=== PATIENT | female | born 1970 | race Caucasian/White ===

== ENCOUNTER → 2020-06-23 | Outpatient (CLI) | payer OTHER ==
--- NOTE | 2020-06-23 17:37 | NM ---
EXAMINATION TYPE: NM hepatobiliary w EF DATE OF EXAM: 06/23/2020 COMPARISON: NONE HISTORY: Acute cholecystitis TECHNIQUE: After the intravenous administration of 4.46 mCi Tc 99m Mebrofenin hepatobiliary scintigra phy is performed. Immediate images post injection. FINDINGS: There is satisfactory initial accumulation of tracer by the liver. The gallbladder is visualized wit hin 6 minutes. The small bowel activity is noted within 30 minutes after giving ensure. At one hour 8 ounces of oral ensure plus is given to mimic CCK and gallbladder ejection fraction is calculated a t 88 %, in the normal range. Therefore there is no scintigraphic evidence of cystic or common bile d uct obstruction, acute or chronic cholecystitis, or biliary dyskinesia. IMPRESSION: Exam is within normal limits. No acute cholecystitis.
== END | disposition home or self-care (01) ==
LOC: RADNMMAIN 13:04
PROVIDERS: ATTEND Surgery Plastic and Reconstructive Surgery
DX: K81.0 Acute cholecystitis (principal)
CPT/HCPCS: 78226; A9537

== ENCOUNTER 2020-06-29 08:12 | Day surgery (SDC) | payer OTHER ==
[2020-06-27 10:13] VITALS: BMI 28.4
[~2020-06-29 08:12] MED LIST: LACTATED RINGERS 1,000 ML IV SCH
[2020-06-29 08:32] VITALS: RESP 16; TEMP 98.4
--- NOTE | 2020-06-29 09:09 | P.GSHP ---
History of Present Illness H&P Date: 06/29/20 CHIEF COMPLAINT: GERD HISTORY OF PRESENT ILLNESS: The patient is a 49-year-old female who presents reports gastroesophageal reflux disease. Upper endoscopy was offered for further evaluation and management. PAST MEDICAL HISTORY: Please see list. PAST SURGICAL HISTORY: Please see list. MEDICATIONS: Please see list. ALLERGIES: Please see list. SOCIAL HISTORY: No illicit drug use FAMILY HISTORY: No reports of Crohn disease or ulcerative colitis. REVIEW OF ORGAN SYSTEMS: CONSTITUTIONAL: No reports of fevers or chills. GI: Denies any blood in stools or constipation. PHYSICAL EXAM: VITAL SIGNS: Stable GENERAL: Well-developed and pleasant in no acute distress. HEENT: No scleral icterus. Extraocular movements grossly intact. Moist buccal mucosa. NECK: Supple without lymphadenopathy. CHEST: Unlabored respirations. Equal bilateral excursions. CARDIOVASCULAR: Regular rate and rhythm. Distal 2+ pulses. ABDOMEN: Soft, nondistended. MUSCULOSKELETAL: No clubbing, cyanosis, or edema. ASSESSMENT: 1. Gastroesophageal reflux disease PLAN: 1. Recommend proceeding with an upper endoscopy Past Medical History Past Medical History: Asthma, Hyperlipidemia, Hypertension Additional Past Medical History / Comment(s): ABD PAIN AND GI UPSET History of Any Multi-Drug Resistant Organisms: None Reported Past Surgical History: Hysterectomy, Orthopedic Surgery Additional Past Surgical History / Comment(s): LT KNEE SX. COLONOSCOPY Past Anesthesia/Blood Transfusion Reactions: No Reported Reaction Smoking Status: Current every day smoker - Past Family History Father Family Medical History: Cancer Additional Family Medical History / Comment(s): COLON AND PROSTATE Medications and Allergies Home Medications Medication Instructions Recorded Confirmed Type Albuterol Sulfate [Ventolin HFA] 1 - 2 puff INHALATION Q6H PRN 06/27/20 06/29/20 History Atorvastatin [Lipitor] 40 mg PO DAILY 06/27/20 06/29/20 History Cyanocobalamin [Vitamin B-12 1,000 mcg IM QMONTHLY 06/27/20 06/29/20 History Injection] Ergocalciferol [Vitamin D2] 50,000 unit PO TH 06/27/20 06/29/20 History Fenofibrate 160 mg PO DAILY 06/27/20 06/29/20 History Fluticasone Propion/Salmeterol 1 inhalation PO BID 06/27/20 06/29/20 History [Fluticasone-Salmeterol 500-50] HYDROcodone/APAP 7.5-325MG [[place] 1 tab PO Q6HR PRN 06/27/20 06/29/20 History 7.5-325] Potassium Chloride ER [K-Dur 10] 20 meq PO DAILY 06/27/20 06/29/20 History amLODIPine [Norvasc] 10 mg PO DAILY 06/27/20 06/29/20 History hydroCHLOROthiazide 25 mg PO DAILY 06/27/20 06/29/20 History Allergies Allergy/AdvReac Type Severity Reaction Status Date / Time Iodinated Contrast Media Allergy Dyspnea Verified 06/29/20 08:32 Surgical - Exam Vital Signs Temp Pulse Resp BP Pulse Ox 98.4 F 75 16 105/61 97 06/29/20 08:27 06/29/20 08:27 06/29/20 08:27 06/29/20 08:27 06/29/20 08:27
[2020-06-29] MEDS ORDERED: PROPOFOL 10 MG/ML 20 ML VIAL IV ONE (10:00)
[2020-06-29] MEDS ORDERED: LIDOCAINE 1% INJ 10MG/ML (20 ML MDV) ONE (10:00)
--- NOTE | 2020-06-29 10:16 | P.PCN ---
Date of Procedure: 06/29/20 Description of Procedure: PREOPERATIVE DIAGNOSIS: Gastroesophageal reflux disease. POSTOPERATIVE DIAGNOSIS: Gastritis. Gastroesophageal reflux disease. Diaphragmatic hiatal hernia OPERATION: Esophagogastroduodenoscopy with biopsies along antrum. SURGEON: Dorothy Sam MD ANESTHESIA: MAC. INDICATIONS: The patient is a 49-year-old female who presents with a history of reflux disease. Benefits and risks of the procedure were described. Informed consent was obtained. DESCRIPTION: The patient was brought into the endoscopy suite and laid in the left lateral decubitus position. An Olympus gastroscope was passed along the posterior oropharynx down to the distal esophagus where the squamocolumnar junction was encountered at 40 cm from the incisors. The stomach was entered and no bile reflux was found. Additional findings are listed below. Biopsies with cold forceps were obtained of the antrum. The first through third portion of the duodenum was examined and unremarkable. Retroflexion of the scope confirmed Hill grade 3 lower esophageal valve. The squamocolumnar junction demonstrated LA grade B erosive esophagitis. The stomach was desufflated. The patient tolerated the procedure well. FINDINGS: Squamocolumnar junction 40 cm from the incisors. Diaphragmatic hiatus at 40 cm. Hill grade 3 lower esophageal valve. LA grade B erosive esophagitis. No active duodenitis. Chronic gastritis RECOMMENDATIONS: Upper endoscopy as needed. Plan - Discharge Summary Discharge Rx Participant: No New Discharge Prescriptions: New Omeprazole [PriLOSEC] 40 mg PO DAILY #14 cap Continue Albuterol Sulfate [Ventolin HFA] 1 - 2 puff INHALATION Q6H PRN PRN Reason: ASTHMA amLODIPine [Norvasc] 10 mg PO DAILY HYDROcodone/APAP 7.5-325MG [[place] 7.5-325] 1 tab PO Q6HR PRN PRN Reason: Pain Ergocalciferol [Vitamin D2 (DRISDOL)] 50,000 unit PO TH Cyanocobalamin [Vitamin B-12 Injection] 1,000 mcg IM QMONTHLY Potassium Chloride ER [K-Dur 10] 20 meq PO DAILY Fenofibrate 160 mg PO DAILY Atorvastatin [Lipitor] 40 mg PO DAILY hydroCHLOROthiazide 25 mg PO DAILY Fluticasone Propion/Salmeterol [Fluticasone-Salmeterol 500-50] 1 inhalation PO BID Discharge Medication List Albuterol Sulfate [Ventolin HFA] 1 - 2 puff INHALATION Q6H PRN 06/27/20 [History] Atorvastatin [Lipitor] 40 mg PO DAILY 06/27/20 [History] Cyanocobalamin [Vitamin B-12 Injection] 1,000 mcg IM QMONTHLY 06/27/20 [History] Ergocalciferol [Vitamin D2 (DRISDOL)] 50,000 unit PO TH 06/27/20 [History] Fenofibrate 160 mg PO DAILY 06/27/20 [History] Fluticasone Propion/Salmeterol [Fluticasone-Salmeterol 500-50] 1 inhalation PO BID 06/27/20 [History] HYDROcodone/APAP 7.5-325MG [[place] 7.5-325] 1 tab PO Q6HR PRN 06/27/20 [History] Potassium Chloride ER [K-Dur 10] 20 meq PO DAILY 06/27/20 [History] amLODIPine [Norvasc] 10 mg PO DAILY 06/27/20 [History] hydroCHLOROthiazide 25 mg PO DAILY 06/27/20 [History] Omeprazole [PriLOSEC] 40 mg PO DAILY #14 cap 06/29/20 [Rx] Follow up Appointment(s)/Referral(s): Dorothy Sam MD [STAFF PHYSICIAN] - 07/12/20 Patient Instructions/Handouts: Gastritis (DC), Diet for Stomach Ulcers and Gastritis (ED), Hiatal Hernia (DC), How to Stop Smoking (DC) Discharge Disposition: HOME SELF-CARE
[2020-06-29 10:32] VITALS: BP 120/60; PULSE 77
== END 2020-06-29 10:40 | disposition home or self-care (01) ==
LOC: ORWHC2ENDO 08:12
PROVIDERS: ATTEND Surgery Plastic and Reconstructive Surgery
DX: K29.50 Unspecified chronic gastritis without bleeding (principal); K21.00 Gastro-esophageal reflux disease with esophagitis, without bleeding; K22.10 Ulcer of esophagus without bleeding; K44.9 Diaphragmatic hernia without obstruction or gangrene; J45.909 Unspecified asthma, uncomplicated; E78.5 Hyperlipidemia, unspecified; I10 Essential (primary) hypertension; F17.210 Nicotine dependence, cigarettes, uncomplicated; Z91.048 Other nonmedicinal substance allergy status; Z90.710 Acquired absence of both cervix and uterus; Z98.890 Other specified postprocedural states; Z79.899 Other long term (current) drug therapy; Z79.51 Long term (current) use of inhaled steroids; Z97.2 Presence of dental prosthetic device (complete) (partial); Z91.041 Radiographic dye allergy status; Z80.0 Family history of malignant neoplasm of digestive organs; Z80.42 Family history of malignant neoplasm of prostate
CPT/HCPCS: 88305; 43239; J2001; J2704

== ENCOUNTER 2020-08-29 12:08 | Observation (INO) | payer OTHER ==
[2020-08-29] MEDS ORDERED: SODIUM CHLORIDE 0.9% 500 ML 500 ML IV STA (12:24)
--- NOTE | 2020-08-29 12:32 | ED ---
General Adult HPI - General Stated complaint: Poss UTI/Weakness Time Seen by Provider: 08/29/20 12:10 Source: patient, RN notes reviewed, old records reviewed - History of Present Illness Initial comments: This is a 49-year-old female presents emergency Department complaining that her knees hurt to the point where she can't stand. Patient states it started about an days ago and has gotten worse to the point where she spent most of those 5 days in her chair. Patient denies any fever chills per patient denies any injury. Patient states she went to another emergency department they did some ultrasounds x-rays and some lab work and then sent her home. Patient states her doctor saw her and did some lab work and urine and told to come to the emergency department. Patient states that he indicated she might of urinary tract infection. Patient denies any back pain. Patient denies any numbness or focal weakness. Patient denies any abdominal pain patient denies nausea vomiting diarrhea. Patient states her thighs and calves are not weak her knees hurt. - Related Data Home Medications Medication Instructions Recorded Confirmed Albuterol Sulfate [Ventolin HFA] 1 - 2 puff INHALATION RT-Q6H PRN 06/27/20 08/29/20 Atorvastatin [Lipitor] 40 mg PO DAILY 06/27/20 08/29/20 Cyanocobalamin [Vitamin B-12 1,000 mcg IM QMONTHLY 06/27/20 08/29/20 Injection] Ergocalciferol [Vitamin D2 50,000 unit PO TH 06/27/20 08/29/20 (DRISDOL)] Fenofibrate 160 mg PO DAILY 06/27/20 08/29/20 Fluticasone Propion/Salmeterol 1 puff INHALATION RT-BID 06/27/20 08/29/20 [Fluticasone-Salmeterol 500-50] Potassium Chloride ER [K-Dur 10] 20 meq PO DAILY 06/27/20 08/29/20 amLODIPine [Norvasc] 10 mg PO DAILY 06/27/20 08/29/20 hydroCHLOROthiazide 25 mg PO DAILY 06/27/20 08/29/20 HYDROcodone/APAP 10-325MG [[place] 1 tab PO Q6HR PRN 08/29/20 08/29/20 10-325] Previous Rx's Medication Instructions Recorded Omeprazole [PriLOSEC] 40 mg PO DAILY #14 cap 06/29/20 Allergies Allergy/AdvReac Type Severity Reaction Status Date / Time Iodinated Contrast Media Allergy Dyspnea Verified 08/29/20 13:17 Review of Systems ROS Statement: Those systems with pertinent positive or pertinent negative responses have been documented in the HPI. ROS Other: All systems not noted in ROS Statement are negative. General Exam - General Exam Comments Initial Comments: GENERAL: Patient is well-developed and well-nourished. Patient is nontoxic and well- hydrated and is in no acute distress. ENT: Neck is soft and supple. No significant lymphadenopathy is noted. Oropharynx is clear. Moist mucous membranes. Neck has full range of motion without eliciting any pain. EYES: The sclera were anicteric and conjunctiva were pink and moist. Extraocular movements were intact and pupils were equal round and reactive to light. Eyelids were unremarkable. PULMONARY: Unlabored respirations. Good breath sounds bilaterally. No audible rales rhonchi or wheezing was noted. CARDIOVASCULAR: There is a regular rate and rhythm without any murmurs gallops or rubs. ABDOMEN: Soft and nontender with normal bowel sounds. SKIN: Skin is clear with no lesions or rashes and otherwise unremarkable. NEUROLOGIC: Patient is alert and oriented x3. Cranial nerves II through XII are grossly intact. Motor and sensory are also intact. Normal speech, volume and content. Symmetrical smile. MUSCULOSKELETAL: Patient has normal strength of her thigh and calf but she is unable to fully flex the niece because of pain. LYMPHATICS: No significant lymphadenopathy is noted PSYCHIATRIC: Normal psychiatric evaluation. Course Vital Signs 08/29/20 08/29/20 12:28 14:16 Temperature 98.7 F Pulse Rate 83 88 Respiratory 18 18 Rate Blood Pressure 98/75 119/67 O2 Sat by Pulse 97 98 Oximetry Medical Decision Making - Medical Decision Making EKG shows sinus rhythm with occasional PAC at 74 bpm MO interval 260 QRS is 94 Q-T intervals 432 QTC is 479. Patient's EKG shows no ST segment elevation or depression. I begin to reevaluate the patient myself and a nurse tried to stand her up and she was able to stand up straight if we gave her some assistance however her pain in her knees bilaterally was so significant that she couldn't stand along needed to sit back down almost immediately. Patient states it does not seem to her that it is weakness of her legs is pain in her knees. Patient states prior to 5 days ago she had no symptoms and no problems and bleeding or getting up. - Lab Data Result diagrams: 08/29/20 12:54 08/29/20 12:54 Lab Results 08/29/20 08/29/20 08/29/20 Range/Units 12:54 12:54 12:54 WBC 12.2 H (3.8-10.6) k/uL RBC 4.36 (3.80-5.40) m/uL Hgb 13.1 (11.4-16.0) gm/dL Hct 38.1 (34.0-46.0) % MCV 87.2 (80.0-100.0) fL MCH 30.0 (25.0-35.0) pg MCHC 34.3 (31.0-37.0) g/dL RDW 13.7 (11.5-15.5) % Plt Count 685 H (150-450) k/uL MPV 6.8 Neutrophils % 66 % Lymphocytes % 19 % Monocytes % 7 % Eosinophils % 4 % Basophils % 2 % Neutrophils # 8.1 H (1.3-7.7) k/uL Lymphocytes # 2.3 (1.0-4.8) k/uL Monocytes # 0.9 (0-1.0) k/uL Eosinophils # 0.5 (0-0.7) k/uL Basophils # 0.3 H (0-0.2) k/uL ESR Cancelled PT 10.1 (9.0-12.0) sec INR 0.9 (<1.2) APTT 24.5 (22.0-30.0) sec Sodium 136 L (137-145) mmol/L Potassium 4.6 (3.5-5.1) mmol/L Chloride 106 (98-107) mmol/L Carbon Dioxide 22 (22-30) mmol/L Anion Gap 8 mmol/L BUN 18 H (7-17) mg/dL Creatinine 0.55 (0.52-1.04) mg/dL Est GFR (CKD-EPI)AfAm >90 (>60 ml/min/1.73 sqM) Est GFR (CKD-EPI)NonAf >90 (>60 ml/min/1.73 sqM) Glucose 117 H (74-99) mg/dL Plasma Lactic Acid [place] (0.7-2.0) mmol/L Calcium 9.6 (8.4-10.2) mg/dL Magnesium 2.2 (1.6-2.3) mg/dL Total Bilirubin 0.9 (0.2-1.3) mg/dL AST 32 (14-36) U/L ALT 20 (4-34) U/L Alkaline Phosphatase 119 (38-126) U/L Troponin I (0.000-0.034) ng/mL C-Reactive Protein 186.3 H (<10.0) mg/L Total Protein 8.0 (6.3-8.2) g/dL Albumin 4.1 (3.5-5.0) g/dL Urine Color Urine Appearance (Clear) Urine pH (5.0-8.0) Ur Specific Essie (1.001-1.035) Urine Protein (Negative) Urine Glucose (UA) (Negative) Urine Ketones (Negative) Urine Blood (Negative) Urine Nitrite (Negative) Urine Bilirubin (Negative) Urine Urobilinogen (<2.0) mg/dL Ur Leukocyte Esterase (Negative) Urine RBC (0-5) /hpf Urine WBC (0-5) /hpf Ur Squamous Epith Cells (0-4) /hpf Urine Bacteria (None) /hpf Urine Mucus (None) /hpf 08/29/20 08/29/20 08/29/20 Range/Units 12:54 12:54 13:15 WBC (3.8-10.6) k/uL RBC (3.80-5.40) m/uL Hgb (11.4-16.0) gm/dL Hct (34.0-46.0) % MCV (80.0-100.0) fL MCH (25.0-35.0) pg MCHC (31.0-37.0) g/dL RDW (11.5-15.5) % Plt Count (150-450) k/uL MPV Neutrophils % % Lymphocytes % % Monocytes % % Eosinophils % % Basophils % % Neutrophils # (1.3-7.7) k/uL Lymphocytes # (1.0-4.8) k/uL Monocytes # (0-1.0) k/uL Eosinophils # (0-0.7) k/uL Basophils # (0-0.2) k/uL ESR PT (9.0-12.0) sec INR (<1.2) APTT (22.0-30.0) sec Sodium (137-145) mmol/L Potassium (3.5-5.1) mmol/L Chloride (98-107) mmol/L Carbon Dioxide (22-30) mmol/L Anion Gap mmol/L BUN (7-17) mg/dL Creatinine (0.52-1.04) mg/dL Est GFR (CKD-EPI)AfAm (>60 ml/min/1.73 sqM) Est GFR (CKD-EPI)NonAf (>60 ml/min/1.73 sqM) Glucose (74-99) mg/dL Plasma Lactic Acid [place] 0.9 (0.7-2.0) mmol/L Calcium (8.4-10.2) mg/dL Magnesium (1.6-2.3) mg/dL Total Bilirubin (0.2-1.3) mg/dL AST (14-36) U/L ALT (4-34) U/L Alkaline Phosphatase (38-126) U/L Troponin I <0.012 (0.000-0.034) ng/mL C-Reactive Protein (<10.0) mg/L Total Protein (6.3-8.2) g/dL Albumin (3.5-5.0) g/dL Urine Color Yellow Urine Appearance Turbid H (Clear) Urine pH 6.0 (5.0-8.0) Ur Specific Essie 1.032 (1.001-1.035) Urine Protein 1+ H (Negative) Urine Glucose (UA) Negative (Negative) Urine Ketones Negative (Negative) Urine Blood Trace H (Negative) Urine Nitrite Negative (Negative) Urine Bilirubin Negative (Negative) Urine Urobilinogen 3.0 (<2.0) mg/dL Ur Leukocyte Esterase Large H (Negative) Urine RBC 31 H (0-5) /hpf Urine WBC 34 H (0-5) /hpf Ur Squamous Epith Cells 71 H (0-4) /hpf Urine Bacteria Occasional H (None) /hpf Urine Mucus Few H (None) /hpf Disposition Clinical Impression: Unable to ambulate, Bilateral knee pain Disposition: ADMITTED IP TO THIS HOSP Referrals: Jose F Sierra MD [Primary Care Provider] - 1-2 days Time of Disposition: 14:17
--- NOTE | 2020-08-29 12:44 | XR ---
EXAMINATION TYPE: XR chest 2V DATE OF EXAM: 08/29/2020 COMPARISON: None HISTORY: 49-year-old female with weakness TECHNIQUE: AP and lateral views FINDINGS: Heart borderline in size. Mild hyperinflation. Some patchy posterior basilar opacity on the lateral v iew. No pleural effusion. IMPRESSION: 1. Correlate for underlying COPD. 2. Some patchy posterior basilar opacity on the lateral view could represent atelectasis or early inf iltrate.
[2020-08-29 13:08] LABS: Basophils # (A) 0.3 k/uL (0-0.2); Basophils % (A) 2 %; Eosinophils # (A) 0.5 k/uL (0-0.7); Eosinophils % (A) 4 %; HCT 38.1 % (34.0-46.0); HGB 13.1 gm/dL (11.4-16.0); Lymphocytes # (A) 2.3 k/uL (1.0-4.8); Lymphocytes % (A) 19 %; MCHC 34.3 g/dL (31.0-37.0); MCV 87.2 fL (80.0-100.0); Mean Platelet Volume 6.8; Monocytes # (A) 0.9 k/uL (0-1.0); Monocytes % (A) 7 %; Neutrophils # (A) 8.1 k/uL (1.3-7.7); Neutrophils % (A) 66 %; Platelet Count 685 k/uL (150-450); RBC 4.36 m/uL (3.80-5.40); RDW 13.7 % (11.5-15.5); WBC 12.2 k/uL (3.8-10.6)
[2020-08-29 13:19] LABS: ALT 20 U/L (4-34); African American GFR (CKD) >90 (>60 ml/min/1.73 sqM); Anion Gap 8 mmol/L; Blood Urea Nitrogen 18 mg/dL (7-17); Calcium 9.6 mg/dL (8.4-10.2); Carbon Dioxide 22 mmol/L (22-30); Chloride 106 mmol/L (98-107); Glucose 117 mg/dL (74-99); Non-African American GFR(CKD) >90 (>60 ml/min/1.73 sqM); Sodium 136 mmol/L (137-145); Total Bilirubin 0.9 mg/dL (0.2-1.3)
[2020-08-29 13:33] LABS: AST 32 U/L (14-36); Albumin 4.1 g/dL (3.5-5.0); Alkaline Phosphatase 119 U/L (38-126); Magnesium 2.2 mg/dL (1.6-2.3); Potassium 4.6 mmol/L (3.5-5.1)
[2020-08-29 13:34] LABS: C Reactive Protein 186.3 mg/L (<10.0)
[2020-08-29 13:43] LABS: INR 0.9 (<1.2); Partial Thromboplastin Time 24.5 sec (22.0-30.0); Prothrombin Time 10.1 sec (9.0-12.0)
[2020-08-29 13:46] LABS: Appearance,Urine Turbid (Clear); Bacteria,Urine Occasional /hpf; Bilirubin,Urine Negative (Negative); Blood,Urine Trace (Negative); Color,Urine Yellow; Glucose,Urine (UA) Negative (Negative); Ketones,Urine Negative (Negative); Leukocyte Esterase,Urine Large (Negative); Mucus,Urine Few /hpf; Nitrite,Urine Negative (Negative); Protein,Urine 1+ (Negative); RBC,Urine 31 /hpf (0-5); Specific Gravity,Urine 1.032 (1.001-1.035); Squamous Epithelial Cell,Urine 71 /hpf (0-4); WBC,Urine 34 /hpf (0-5)
[2020-08-29] MEDS ORDERED: KETOROLAC 15 MG/ML 1 ML VIAL IVP STA (14:30)
[2020-08-29] MEDS ORDERED: ALBUTEROL NEBULIZED 2.5 MG/3 ML INHALATION PRN (21:13)
[2020-08-29] MEDS: KETOROLAC 15 MG/ML 1 ML VIAL IVP SCH (22:54)
[2020-08-29] MEDS: HYDROcodone/APAP 10-325MG 1 EACH TAB PO PRN (22:58)
[2020-08-30] MEDS: KETOROLAC 15 MG/ML 1 ML VIAL IVP SCH ×5 (01:02→23:38)
[2020-08-30 07:41] VITALS: RESP 16
[2020-08-30] MEDS: PANTOPRAZOLE 40 MG TABLET PO SCH (08:39)
[2020-08-30] MEDS: ATORVASTATIN 40 MG TAB PO SCH (08:39)
[2020-08-30] MEDS: FENOFIBRATE 160 MG TAB PO SCH (08:39)
[2020-08-30] MEDS: hydroCHLOROthiazide 25 MG TAB PO SCH (08:39)
[2020-08-30] MEDS: POTASSIUM CHLORIDE ER 10 MEQ TAB.ER.PRT PO SCH (08:39)
[2020-08-30] MEDS: amLODIPine 10 MG TAB PO SCH (08:39)
[2020-08-30] MEDS: HYDROcodone/APAP 10-325MG 1 EACH TAB PO PRN ×2 (08:40→13:39)
[2020-08-30] MEDS: SYMBICORT 160-4.5 MCG INHALER INHALATION SCH ×2 (08:59→21:00)
[2020-08-30 12:45] VITALS: BMI 28.8
[2020-08-30] MEDS: ENOXAPARIN 40 MG/0.4 ML SYRINGE SQ SCH (13:34)
[2020-08-30] MEDS: NICOTINE 21MG/24HR PATCH TRANSDERM SCH (13:34)
[2020-08-30] MEDS: methylPREDNISolone SOD SUCCI 40 MG/ML 1 ML VIAL IV SCH ×2 (13:34→21:32)
[2020-08-30] MEDS: DICLOFENAC SODIUM GEL 100 GM TUBE TOPICAL SCH ×3 (16:27→21:33)
--- NOTE | 2020-08-30 20:28 | P.HPIM ---
History of Present Illness H&P Date: 08/30/20 Chief Complaint: Bilateral knee pain History of presenting complaint: This is a 49-year-old patient of Dr. Eduard Sierra from [facility]. Patient 7 days ago started noticing that both the knees was started to hurting and progressively getting worse. Slight swelling. Denied any fever and chills. No diarrhea. No myalgia. Patient able to flex her knees but unable to stand on them. No other joints involved. Patient does drink a fifth a walker daily up to 3 months ago.. Also smokes a pack a day. Patient also has a leaky valve lower end of esophagus and supposed to have surgery by Dr. Ambriz coming up. Review of systems: GEN.: None EYES: None HEENT: None NECK: None RESPIRATORY: None CARDIOVASCULAR: None GASTROINTESTINAL: None GENITOURINARY: None MUSCULOSKELETAL: As above LYMPHATICS: None HEMATOLOGICAL: None PSYCHIATRY: None NEUROLOGICAL: None Past medical history to include: Hypertension, hyperlipidemia, restless leg syndrome, GERD, COPD Social history: . Smokes a pack a day. Was drinking a fifth of vodka a day up to 3 months ago. Family history: Reviewed, noncontributory to presentation Physical examination: VITAL SIGNS: 98.7, 83, 18, 119/67, 98% room air GENERAL: 28.8, sitting up in bed, not in distress. EYES: Pupils equal. Conjunctiva normal. HEENT: External appearance of nose and ears normal, oral cavity grossly normal. NECK: JVD not raised; masses not palpable. HEART: First and second heart sounds are normal; no edema. LUNGS: Respiratory rate normal; clear to auscultation. ABDOMEN: Soft, nontender, liver spleen not palpable, no masses palpable MUSCULAR skeletal: Patient is able to flex both the knees. Minimal tenderness.. PSYCH: Alert and oriented x3; mood and affect normal. NEUROLOGICAL: Cranial nerves grossly intact; no facial asymmetry, power and sensation grossly intact. LYMPHATICS: No lymph nodes palpable in the axilla and neck INVESTIGATIONS, reviewed in the clinical context: White count 12.2 hemoglobin 13.1 platelets 685 ESR 106 potassium 4.6 creatinine 0.55 CRP 186 UA-contaminated sample EKG tracing personally reviewed by me-normal sinus rhythm with a PVC Chest x-ray film personally reviewed by me shows some hyperinflation, possible left basal small infiltrate Assessment: -This is a patient presents with a 1 week history of both the knees having pain unable to stand of the same. That is flexion of the knees but patient not able to weight-bear. Suspect this to be possible viral arthritis. Patient does not have any obvious fever and chills. -COPD in a current smoker -Chronic nicotine dependence cigarette smoker -Hyperlipidemia -Essential hypertension -Restless leg syndrome -Alcohol use disorder Plan: Start the patient on IV Solu-Medrol. Home medications resumed. We'll give a nicotine patch. CIWA scale. Also give a dose of Valium for DVT prophylaxis. Care was discussed with the patient question also. Dr. Mcarthur from rheumatology was consulted. Lovenox for DVT prophylaxis. Past Medical History Past Medical History: Hyperlipidemia, Hypertension Additional Past Medical History / Comment(s): restless leg History of Any Multi-Drug Resistant Organisms: None Reported Past Surgical History: Orthopedic Surgery Additional Past Surgical History / Comment(s): left knee scope Past Psychological History: No Psychological Hx Reported Smoking Status: Current every day smoker Past Alcohol Use History: None Reported Past Drug Use History: Marijuana Medications and Allergies Home Medications Medication Instructions Recorded Confirmed Type Albuterol Sulfate [Ventolin HFA] 1 - 2 puff INHALATION RT-Q6H PRN 06/27/20 08/29/20 History Atorvastatin [Lipitor] 40 mg PO DAILY 06/27/20 08/29/20 History Cyanocobalamin [Vitamin B-12 1,000 mcg IM QMONTHLY 06/27/20 08/29/20 History Injection] Ergocalciferol [Vitamin D2 50,000 unit PO TH 06/27/20 08/29/20 History (DRISDOL)] Fenofibrate 160 mg PO DAILY 06/27/20 08/29/20 History Fluticasone Propion/Salmeterol 1 puff INHALATION RT-BID 06/27/20 08/29/20 History [Fluticasone-Salmeterol 500-50] Potassium Chloride ER [K-Dur 10] 20 meq PO DAILY 06/27/20 08/29/20 History amLODIPine [Norvasc] 10 mg PO DAILY 06/27/20 08/29/20 History hydroCHLOROthiazide 25 mg PO DAILY 06/27/20 08/29/20 History Omeprazole [PriLOSEC] 40 mg PO DAILY #14 cap 06/29/20 08/29/20 Rx HYDROcodone/APAP 10-325MG [[place] 1 tab PO Q6HR PRN 08/29/20 08/29/20 History 10-325] Allergies Allergy/AdvReac Type Severity Reaction Status Date / Time Iodinated Contrast Media Allergy Dyspnea Verified 08/29/20 13:17 Physical Exam Vitals: Vital Signs Temp Pulse Pulse Resp BP BP Pulse Ox 08/30/20 09:08 58 L 08/30/20 08:59 58 L 08/30/20 07:40 97.9 F 57 L 16 119/66 90 L 08/30/20 02:07 99.1 F 63 109/63 92 L 08/29/20 19:41 99.1 F 73 135/65 96 08/29/20 18:22 98.7 F 70 18 99/62 97 08/29/20 18:19 70 18 99/62 97 08/29/20 17:00 87 18 167/100 97 08/29/20 14:16 88 18 119/67 98 08/29/20 12:28 98.7 F 83 18 98/75 97 Intake and Output 08/29/20 08/30/20 08/30/20 22:59 06:59 14:59 Other: Voiding Method Toilet Bedside Commode # Voids 1 # Bowel Movements 1 Weight 91.172 kg Results CBC & Chem 7: 08/29/20 12:54 08/29/20 12:54 Labs: Abnormal Lab Results - Last 24 Hours (Table) 08/29/20 08/29/20 08/29/20 Range/Units 12:54 12:54 13:15 WBC 12.2 H (3.8-10.6) k/uL Plt Count 685 H (150-450) k/uL Neutrophils # 8.1 H (1.3-7.7) k/uL Basophils # 0.3 H (0-0.2) k/uL ESR (0-20) mm/hr Sodium 136 L (137-145) mmol/L BUN 18 H (7-17) mg/dL Glucose 117 H (74-99) mg/dL C-Reactive Protein 186.3 H (<10.0) mg/L Urine Appearance Turbid H (Clear) Urine Protein 1+ H (Negative) Urine Blood Trace H (Negative) Ur Leukocyte Esterase Large H (Negative) Urine RBC 31 H (0-5) /hpf Urine WBC 34 H (0-5) /hpf Ur Squamous Epith Cells 71 H (0-4) /hpf Urine Bacteria Occasional H (None) /hpf Urine Mucus Few H (None) /hpf 08/29/20 Range/Units 22:27 WBC (3.8-10.6) k/uL Plt Count (150-450) k/uL Neutrophils # (1.3-7.7) k/uL Basophils # (0-0.2) k/uL ESR 106 H (0-20) mm/hr Sodium (137-145) mmol/L BUN (7-17) mg/dL Glucose (74-99) mg/dL C-Reactive Protein (<10.0) mg/L Urine Appearance (Clear) Urine Protein (Negative) Urine Blood (Negative) Ur Leukocyte Esterase (Negative) Urine RBC (0-5) /hpf Urine WBC (0-5) /hpf Ur Squamous Epith Cells (0-4) /hpf Urine Bacteria (None) /hpf Urine Mucus (None) /hpf Microbiology - Last 24 Hours (Table) 08/29/20 13:15 Urine Culture - Preliminary Urine,Voided
[2020-08-30] MEDS: diazePAM 2 MG TAB PO SCH (21:32)
[2020-08-31] MEDS: methylPREDNISolone SOD SUCCI 40 MG/ML 1 ML VIAL IV SCH ×2 (05:24→14:15)
[2020-08-31] MEDS: KETOROLAC 15 MG/ML 1 ML VIAL IVP SCH ×2 (05:24→14:15)
[2020-08-31] MEDS: SYMBICORT 160-4.5 MCG INHALER INHALATION SCH (07:21)
[2020-08-31 07:42] VITALS: TEMP 97.9
[2020-08-31] MEDS: ENOXAPARIN 40 MG/0.4 ML SYRINGE SQ SCH (09:15)
[2020-08-31] MEDS: PANTOPRAZOLE 40 MG TABLET PO SCH (09:15)
[2020-08-31] MEDS: FENOFIBRATE 160 MG TAB PO SCH (09:15)
[2020-08-31] MEDS: ATORVASTATIN 40 MG TAB PO SCH (09:15)
[2020-08-31] MEDS: amLODIPine 10 MG TAB PO SCH (09:15)
[2020-08-31] MEDS: hydroCHLOROthiazide 25 MG TAB PO SCH (09:15)
[2020-08-31] MEDS: NICOTINE 21MG/24HR PATCH TRANSDERM SCH (09:15)
[2020-08-31] MEDS: POTASSIUM CHLORIDE ER 10 MEQ TAB.ER.PRT PO SCH (09:15)
[2020-08-31] MEDS: HYDROcodone/APAP 10-325MG 1 EACH TAB PO PRN (09:16)
[2020-08-31] MEDS: DICLOFENAC SODIUM GEL 100 GM TUBE TOPICAL SCH ×2 (09:16→14:15)
[2020-08-31] MEDS: diazePAM 2 MG TAB PO SCH (09:16)
[2020-08-31 14:56] VITALS: BP 135/79; PULSE 68
--- NOTE | 2020-08-31 16:44 | P.CONS ---
History of Present Illness - Reason for Consult Consult date: 08/30/20 Requesting physician: Taz García - Chief Complaint Bilateral knee pain - History of Present Illness Acute bilateral knee pain and cannot stand up Review of Systems Constitutional: Reports as per HPI, Reports fatigue, Reports weakness Past Medical History Past Medical History: Hyperlipidemia, Hypertension Additional Past Medical History / Comment(s): restless leg History of Any Multi-Drug Resistant Organisms: None Reported Past Surgical History: Orthopedic Surgery Additional Past Surgical History / Comment(s): left knee scope Past Psychological History: No Psychological Hx Reported Smoking Status: Current every day smoker Past Alcohol Use History: None Reported Past Drug Use History: Marijuana Medications and Allergies Home Medications Medication Instructions Recorded Confirmed Type Albuterol Sulfate [Ventolin HFA] 1 - 2 puff INHALATION RT-Q6H PRN 06/27/20 08/29/20 History Atorvastatin [Lipitor] 40 mg PO DAILY 06/27/20 08/29/20 History Cyanocobalamin [Vitamin B-12 1,000 mcg IM QMONTHLY 06/27/20 08/29/20 History Injection] Ergocalciferol [Vitamin D2 50,000 unit PO TH 06/27/20 08/29/20 History (DRISDOL)] Fenofibrate 160 mg PO DAILY 06/27/20 08/29/20 History Fluticasone Propion/Salmeterol 1 puff INHALATION RT-BID 06/27/20 08/29/20 History [Fluticasone-Salmeterol 500-50] Potassium Chloride ER [K-Dur 10] 20 meq PO DAILY 06/27/20 08/29/20 History amLODIPine [Norvasc] 10 mg PO DAILY 06/27/20 08/29/20 History hydroCHLOROthiazide 25 mg PO DAILY 06/27/20 08/29/20 History Omeprazole [PriLOSEC] 40 mg PO DAILY #14 cap 06/29/20 08/29/20 Rx HYDROcodone/APAP 10-325MG [[place] 1 tab PO Q6HR PRN 08/29/20 08/29/20 History 10-325] Diclofenac Sodium Gel [Voltaren 4 gm TOPICAL QID tube 08/31/20 Rx Gel] Nicotine 21Mg/24Hr Patch [Habitrol] 1 patch TRANSDERM DAILY #14 patch 08/31/20 Rx predniSONE 0 mg PO DIRECTED #21 tab 08/31/20 Rx Allergies Allergy/AdvReac Type Severity Reaction Status Date / Time Iodinated Contrast Media Allergy Dyspnea Verified 08/29/20 13:17 Physical Exam Vitals: Vital Signs Temp Pulse Resp BP Pulse Ox 08/31/20 14:00 97.9 F 68 16 135/79 97 08/31/20 07:41 97.9 F 66 16 139/92 96 08/31/20 02:39 98.2 F 57 L 117/58 93 L Intake and Output 08/31/20 08/31/20 08/31/20 06:59 14:59 22:59 Other: Voiding Method Toilet - Constitutional General appearance: no acute distress - EENT Eyes: EOMI ENT: hearing grossly normal - Neck Neck: no lymphadenopathy, normal ROM - Respiratory Respiratory: bilateral: CTA - Cardiovascular Rhythm: regular Heart sounds: normal: S1, S2 - Gastrointestinal General gastrointestinal: soft - Neurologic Neurologic: CNII-XII intact - Musculoskeletal Patient is unable to Standupwithout support because of pain in the knees, No swelling in the knees ,the rest of the Musculoskeletal exam was normal, scar on the left knee from previous scope Results CBC & Chem 7: 08/29/20 12:54 08/29/20 12:54 Labs: Microbiology - Last 24 Hours (Table) 08/29/20 13:15 Urine Culture - Final Urine,Voided Assessment and Plan (1) Bilateral knee pain Current Visit: Yes Status: Acute Code(s): M25.561 - PAIN IN RIGHT KNEE; M25.562 - PAIN IN LEFT KNEE SNOMED Code(s): 05641738 (2) Elevated sedimentation rate Current Visit: Yes Status: Acute Code(s): R70.0 - ELEVATED ERYTHROCYTE SEDIMENTATION RATE SNOMED Code(s): 978231081 Plan: This is a 49-year-old female admitted to [facility] and was seen on the floor. Rheumatology was consulted because of acute knee pain that started last week. The pain was so bad that she was unable to put any weight on her knee and standup and per the patient she did go to review [facility] and had ultrasound and x-rays and was told that everything was normal. It looks that her primary care physician found some abnormal lab work and told to come to the emergency room. On exam the patient has a fairly normal exam has no evidence of synovitis. The knees do not have any effusion. She has a scar in the left knee from her previous arthroscopic surgery. All other exam normal. The patient apparently is being treated as pneumonia based on the chest x-ray the patient denies any significant cough or fever and apparently has not been tested for Covid. I see no ophelia evidence of synovitis and she would need to be checked for her acute knee pain through orthopedic or neurology for other causes as it does not seem to inflammatory arthritis. Her sedimentation rate was in the 100s CRP was also 100 suggesting significant acute inflammation and since she did seem to have an infiltrate in the lungs she may have an infection that may be causing her acute joint pain. She is already on prednisone that'll hopefully help some of his symptoms. I will hold off an autoimmune workup at this time and if her symptoms persist she will see me as an outpatient.
[2020-09-01] MEDS ORDERED: ERGOCALCIFEROL 50,000 UNIT CAP PO SCH (09:00)
--- NOTE | 2020-09-01 17:26 | P.DS ---
Providers Date of admission: 08/29/20 14:18 Expected date of discharge: 08/31/20 Attending physician: Joshua Irving Consults: 08/29/20 14:31 Consult Physician Urgent Consulting Provider: Pati Mcarthur Consult Reason/Comments: Bilateral knee pain, inability to ambulate Do you want consulting provider notified?: Yes Primary care physician: Jose F Sierra [facility] Course: Chief Complaint: Bilateral knee pain History of presenting complaint: This is a 49-year-old patient of Dr. Eduard Sierra from [facility]. Patient 7 days ago started noticing that both the knees was started to hurting and progressively getting worse. Slight swelling. Denied any fever and chills. No diarrhea. No myalgia. Patient able to flex her knees but unable to stand on them. No other joints involved. Patient does drink a fifth a walker daily up to 3 months ago.. Also smokes a pack a day. Patient also has a leaky valve lower end of esophagus and supposed to have surgery by Dr. Ambriz coming up. Patient was suspected to have acute viral osteoarthritis affecting her knees. Based and not given a burst of steroids. Patient has a remarkable response. Today-feeling much better. Able to walk without support. No fever no chills. Care was discussed with the patient. We'll be discharging a tapering dose of steroids. Consultation: Dr. Mcarthur from rheumatology Physical examination: VITAL SIGNS: 97.9, 68, 16, 135 with 79, 97% room air GENERAL: Sitting up, comfortable EYES: Pupils equal. Conjunctiva normal. HEENT: External appearance of nose and ears normal, oral cavity grossly normal. NECK: JVD not raised; masses not palpable. HEART: First and second heart sounds are normal; no edema. LUNGS: Respiratory rate normal; clear to auscultation. ABDOMEN: Soft, nontender, liver spleen not palpable, no masses palpable MUSCULAR skeletal: Patient is able to flex both the knees. Minimal tenderness.. PSYCH: Alert and oriented x3; mood and affect normal. Neurological: Patient's witnessed to walk without support INVESTIGATIONS, reviewed in the clinical context: White count 12.2 hemoglobin 13.1 platelets 685 ESR 106 potassium 4.6 creatinine 0.55 CRP 186 UA-contaminated sample EKG tracing personally reviewed by me-normal sinus rhythm with a PVC Chest x-ray film personally reviewed by me shows some hyperinflation, possible left basal small infiltrate Assessment: -Possible Acute viral polyarthritis affecting both the knees. -COPD in a current smoker -Chronic nicotine dependence cigarette smoker -Hyperlipidemia -Essential hypertension -Restless leg syndrome -Alcohol use disorder Disposition: Home Patient Condition at Discharge: Stable Plan - Discharge Summary Discharge Rx Participant: No New Discharge Prescriptions: New Nicotine 21Mg/24Hr Patch [Habitrol] 1 patch TRANSDERM DAILY #14 patch predniSONE 0 mg PO DIRECTED #21 tab Diclofenac Sodium Gel [Voltaren Gel] 4 gm TOPICAL QID tube Continue Albuterol Sulfate [Ventolin HFA] 1 - 2 puff INHALATION RT-Q6H PRN PRN Reason: ASTHMA amLODIPine [Norvasc] 10 mg PO DAILY Ergocalciferol [Vitamin D2 (DRISDOL)] 50,000 unit PO TH Cyanocobalamin [Vitamin B-12 Injection] 1,000 mcg IM QMONTHLY Potassium Chloride ER [K-Dur 10] 20 meq PO DAILY Fenofibrate 160 mg PO DAILY Atorvastatin [Lipitor] 40 mg PO DAILY hydroCHLOROthiazide 25 mg PO DAILY Fluticasone Propion/Salmeterol [Fluticasone-Salmeterol 500-50] 1 puff INHALATION RT-BID Omeprazole [PriLOSEC] 40 mg PO DAILY #14 cap HYDROcodone/APAP 10-325MG [[place] 10-325] 1 tab PO Q6HR PRN PRN Reason: Pain Discharge Medication List Albuterol Sulfate [Ventolin HFA] 1 - 2 puff INHALATION RT-Q6H PRN 06/27/20 [History] Atorvastatin [Lipitor] 40 mg PO DAILY 06/27/20 [History] Cyanocobalamin [Vitamin B-12 Injection] 1,000 mcg IM QMONTHLY 06/27/20 [History] Ergocalciferol [Vitamin D2 (DRISDOL)] 50,000 unit PO TH 06/27/20 [History] Fenofibrate 160 mg PO DAILY 06/27/20 [History] Fluticasone Propion/Salmeterol [Fluticasone-Salmeterol 500-50] 1 puff INHALATION RT-BID 06/27/20 [History] Potassium Chloride ER [K-Dur 10] 20 meq PO DAILY 06/27/20 [History] amLODIPine [Norvasc] 10 mg PO DAILY 06/27/20 [History] hydroCHLOROthiazide 25 mg PO DAILY 06/27/20 [History] Omeprazole [PriLOSEC] 40 mg PO DAILY #14 cap 06/29/20 [Rx] HYDROcodone/APAP 10-325MG [[place] 10-325] 1 tab PO Q6HR PRN 08/29/20 [History] Diclofenac Sodium Gel [Voltaren Gel] 4 gm TOPICAL QID tube 08/31/20 [Rx] Nicotine 21Mg/24Hr Patch [Habitrol] 1 patch TRANSDERM DAILY #14 patch 08/31/20 [Rx] predniSONE 0 mg PO DIRECTED #21 tab 08/31/20 [Rx] Follow up Appointment(s)/Referral(s): Jose F Sierra MD [Primary Care Provider] - 09/06/20 11:30 am [facility], [NON-STAFF] - Discharge Disposition: HOME SELF-CARE
== END 2020-08-31 16:42 | disposition home or self-care (01) ==
LOC: EC 12:08 → 4SSUR 14:18
PROVIDERS: ADMIT Hospitalist; ATTEND Hospitalist
DX: R26.2 Difficulty in walking, not elsewhere classified (principal); M25.562 Pain in left knee; M25.561 Pain in right knee; M79.89 Other specified soft tissue disorders; R70.0 Elevated erythrocyte sedimentation rate; J44.9 Chronic obstructive pulmonary disease, unspecified; E78.5 Hyperlipidemia, unspecified; I10 Essential (primary) hypertension; G25.81 Restless legs syndrome; K22.8 Other specified diseases of esophagus; I49.1 Atrial premature depolarization; F17.210 Nicotine dependence, cigarettes, uncomplicated; K21.9 Gastro-esophageal reflux disease without esophagitis; Z79.899 Other long term (current) drug therapy; Z79.51 Long term (current) use of inhaled steroids; Z91.041 Radiographic dye allergy status; Z98.890 Other specified postprocedural states
CPT/HCPCS: 96376 ×2; 96372 ×2; 96375; 96361; 96374; 99285; 36415; 94640 ×3; 94760; 93005; 80053; 85652; 83605; 83735; 84484; 85025; 85610; 85730; 86140; 81001; 87086; 71046; G0378 ×3; S4990 ×2; J2920 ×2; J1650 ×2; J1885 ×3

== ENCOUNTER 2022-04-06 08:10 | Day surgery (SDC) | payer OTHER ==
[~2022-04-06 08:10] MED LIST changes: -LACTATED RINGERS 1,000 ML IV SCH; +LIDOCAINE 1% (10MG/ML) FOR IV START INTRADERMA PRN
[2022-04-06] MEDS: LACTATED RINGERS 1,000 ML IV SCH ×2 (08:21→09:22)
[2022-04-06 08:26] VITALS: TEMP 96.9
[2022-04-06] MEDS ORDERED: PROPOFOL 10 MG/ML 20 ML VIAL IV ONE (09:24)
[2022-04-06] MEDS ORDERED: LIDOCAINE 2% INJ 20 MG/ML (2 ML VIAL) ONE (09:24)
--- NOTE | 2022-04-06 09:41 | P.PCN ---
Date of Procedure: 04/06/22 Procedure(s) Performed: BRIEF HISTORY: Patient is a 51-year-old pleasant white female scheduled for an elective colonoscopy as a part of screening for colon cancer and family history of colon cancer.iagHer father was diagnosed with colon cancer at age 50. PROCEDURE PERFORMED: Colonoscopy. PREOPERATIVE DIAGNOSIS: Screening for colon cancer and family history of colon cancer. IV sedation per Anesthesia. PROCEDURE: After informed consent was obtained, the patient, was brought into the endoscopy unit. IV sedation was administered by Anesthesia under continuous monitoring. Digital rectal examination was normal. Initially the Olympus CF-160 flexible video colonoscope was then inserted in the rectum, gradually advanced into the cecum without any difficulty. Careful examination was performed as the scope was gradually being withdrawn. Ileocecal valve and the appendiceal orifice were visualized and appeared normal. Prep was excellent. Mucosa of the cecum, ascending colon, transverse colon, descending colon, sigmoid colon, and rectum appeared normal. Scattered sigmoid diverticulosis. Retroflexion was performed in the rectum and no lesions were seen. The patient tolerated the procedure well. IMPRESSION: Normal-appearing colon from rectum to cecum with no evidence of colorectal neoplasia. Scattered sigmoid diverticulosis. RECOMMENDATIONS: Findings of this examination were discussed with the patient as well as her family. She was advised to have a repeat screening colonoscopy every 5 years because of family history of colon cancer..
[2022-04-06 10:04] VITALS: BP 97/56; PULSE 64; RESP 17
== END 2022-04-06 10:15 | disposition home or self-care (01) ==
LOC: ORWHC2ENDO 08:10
PROVIDERS: ATTEND Internal Medicine Gastroenterology
DX: Z12.11 Encounter for screening for malignant neoplasm of colon (principal); K57.30 Diverticulosis of large intestine without perforation or abscess without bleeding; Z80.0 Family history of malignant neoplasm of digestive organs; I10 Essential (primary) hypertension; E78.5 Hyperlipidemia, unspecified; G25.81 Restless legs syndrome; K21.9 Gastro-esophageal reflux disease without esophagitis; Z97.2 Presence of dental prosthetic device (complete) (partial); Z79.891 Long term (current) use of opiate analgesic; Z79.899 Other long term (current) drug therapy; Z91.041 Radiographic dye allergy status; Z91.048 Other nonmedicinal substance allergy status
CPT/HCPCS: J2704; J2001; G0105; 45378